=== PATIENT | male | born 1965 | race Caucasian/White ===

== ENCOUNTER 2016-12-07 17:39 | Emergency (ER) | payer MEDICARE ==
[2016-12-07 17:52] VITALS: BP 123/69
[2016-12-07] MEDS ORDERED: BOOSTRIX IM ONE (19:24)
[2016-12-07] MEDS ORDERED: NACL 0.9% IR ONE ×2 (19:24→19:28)
[2016-12-07] MEDS ORDERED: XYLOCAINE 1% 20 mL INFILTRATI ONE (19:24)
--- NOTE | 2016-12-07 20:01 | Emergency Department Report ---
- General Chief Complaint: Laceration/Recheck/Suture Stated Complaint: LAC FINGER Time Seen by Provider: 12/07/16 19:18 Source: patient, family Mode of arrival: Ambulatory Limitations: Physical Limitation, Other - History of Present Illness Initial Comments: Patient comes in the ER today with complaints of a laceration noted to his right fifth finger. Patient states that he was slicing some food when he accidentally got his right fifth finger. Patient unsure of when his last tetanus shot was. Patient states that he wrapped up his finger and came straight here. Patient denies any other complaints. Patient states he can still feel everything on the tip of his finger. -: Sudden - Related Data Previous Rx's Medication Instructions Recorded Last Taken Type Cephalexin [Keflex] 500 mg PO TID #30 capsule 12/07/16 Unknown Rx Allergies Allergy/AdvReac Type Severity Reaction Status Date / Time No Known Allergies Allergy Unverified 12/07/16 17:45 ED Review of Systems ROS: Stated complaint: LAC FINGER Other details as noted in HPI Constitutional: denies: chills, fever Eyes: denies: eye pain, eye discharge, vision change ENT: denies: ear pain, throat pain Respiratory: denies: cough, shortness of breath, wheezing Cardiovascular: denies: chest pain, palpitations Endocrine: no symptoms reported Gastrointestinal: denies: abdominal pain, nausea, diarrhea Genitourinary: denies: urgency, dysuria Musculoskeletal: denies: back pain, joint swelling, arthralgia Skin: denies: rash, lesions Neurological: denies: headache, weakness, paresthesias Psychiatric: denies: anxiety, depression Hematological/Lymphatic: denies: easy bleeding, easy bruising ED Past Medical Hx - Past Medical History Previous Medical History?: No Hx Hypertension: No Hx CVA: No Hx Heart Attack/AMI: No Hx Congestive Heart Failure: No Hx Diabetes: No Hx Deep Vein Thrombosis: No Hx Pulmonary Embolism: No Hx GERD: No Hx Liver Disease: No Hx Renal Disease: No Hx of Cancer: No Hx Sickle Cell Disease: No Hx Arthritis: No Hx Headaches / Migraines: No Hx Seizures: No Hx Kidney Stones: No Hx Psychiatric Treatment: No Hx Asthma: No Hx COPD: No Hx Tuberculosis: No Hx Dementia: No Hx HIV: No - Surgical History Past Surgical History?: No - Social History Smoking Status: Current Every Day Smoker Substance Use Type: None - Medications Home Medications: Home Medications Medication Instructions Recorded Confirmed Last Taken Type Cephalexin [Keflex] 500 mg PO TID #30 capsule 12/07/16 Unknown Rx ED Physical Exam - General Limitations: Physical Limitation, Other General appearance: alert, in no apparent distress - Head Head exam: Present: atraumatic, normocephalic - Eye Eye exam: Present: normal appearance - ENT ENT exam: Present: mucous membranes moist - Neck Neck exam: Present: normal inspection - Respiratory Respiratory exam: Present: normal lung sounds bilaterally. Absent: respiratory distress - Cardiovascular Cardiovascular Exam: Present: regular rate, normal rhythm. Absent: systolic murmur, diastolic murmur, rubs, gallop - GI/Abdominal GI/Abdominal exam: Present: soft, normal bowel sounds - Rectal Rectal exam: Present: deferred - Extremities Exam Extremities exam: Present: normal inspection, full ROM, tenderness (right distal fifth finger anterior lateral subcutaneous flap laceration measuring 1 cm.), normal capillary refill. Absent: joint swelling - Back Exam Back exam: Present: normal inspection - Neurological Exam Neurological exam: Present: alert, oriented X3 - Psychiatric Psychiatric exam: Present: normal affect, normal mood - Skin Skin exam: Present: warm, dry, intact, normal color. Absent: rash ED Course Vital Signs 12/07/16 17:46 Temperature 98.5 F Pulse Rate 67 Respiratory 18 Rate Blood Pressure 123/69 O2 Sat by Pulse 97 Oximetry - Laceration /Wound Repair Right Anterior Lateral Distal Palm Finger Wound Location: upper extremity (right anterior lateral distal fifth finger) Wound Length (cm): 1 Wound's Depth, Shape: flap (subcutaneous) Wound Explored: clean Irrigated w/ Saline (ccs): 30 Betadine Prep?: Yes Anesthesia: 1% Lidocaine Volume Anesthetic (ccs): 2 Wound Repaired With: sutures Suture Size/Type: 4:0, proline Number of Sutures: 4 Layer Closure?: No Sterile Dressing Applied?: Yes Progress: Patient tolerated procedure very well without any complications. Wound dressed and nonadherent bandage. Patient was instructed on proper care of handling of wound. Patient is to return to the ER in the next 10 days for suture removal. ED Medical Decision Making - Medical Decision Making Patient tolerated procedure very well without any complications. Patient was given an update to his tetanus here in the ER. I have instructed patient on proper care and handling of wound. Patient is to return to the ER in 10 days for suture removal. Patient is in agreement with treatment plan patient stable for discharge. Critical care attestation.: If time is entered above; I have spent that time in minutes in the direct care of this critically ill patient, excluding procedure time. ED Disposition Clinical Impression: Finger laceration Disposition: DC-01 TO HOME OR SELFCARE Is pt being admited?: No Does the pt Need Aspirin: No Condition: Good Instructions: Suture Care (ED), Finger Laceration (ED) Prescriptions: Cephalexin [Keflex] 500 mg PO TID #30 capsule Referrals: PRIMARY CARE,MD [Primary Care Provider] - 3-5 Days [facility], emergency Department [Other] - 12/17/16 (For suture removal) Time of Disposition: 20:05
== END 2016-12-07 20:20 | disposition home or self-care (01) ==
LOC: ED 17:39
DX: S61.216A Laceration without foreign body of right little finger without damage to nail, initial encounter (principal); W45.8XXA Other foreign body or object entering through skin, initial encounter; Y93.9 Activity, unspecified; Y92.9 Unspecified place or not applicable; Y99.9 Unspecified external cause status; F17.200 Nicotine dependence, unspecified, uncomplicated
CPT/HCPCS: 90471; 90715; 99282